=== PATIENT | female | born 1990 | race Caucasian/White ===

== ENCOUNTER → 2019-12-30 | Outpatient (REF) | payer BC | LOC: M LABDRAWC 11:54 | PROVIDERS: ATTEND Internal Medicine Endocrinology, Diabetes & Metabolism | DX: E03.9 Hypothyroidism, unspecified (principal) ==

== ENCOUNTER → 2020-01-12 | Outpatient (REF) | payer BC ==
[2020-01-12 14:07] LABS: BACTERIA, URINE AUTO NEGATIVE (NEGATIVE); RBC, URINE AUTO 1 /HPF (0-3); SQUAMOUS EPITHELIAL CELL UR AU 2 /HPF (0-6); WBC, URINE AUTO 0 /HPF (0-3)
== END ==
LOC: M LAB REF 13:14
PROVIDERS: ATTEND Physician Assistant Medical
DX: N39.0 Urinary tract infection, site not specified (principal)

== ENCOUNTER → 2020-01-13 | Outpatient (CLI) | payer BC ==
--- NOTE | 2020-01-13 10:46 | REPVR ---
PROCEDURE INFORMATION: Exam: US Retroperitoneal; Complete; Kidneys and Bladder Exam date and time: 01/13/2020 10:36 AM Age: 29 years old Clinical indication: Abdominal pain; Flank; Right; Additional info: Urinary tract infection, dorsaliga TECHNIQUE: Imaging protocol: Real-time ultrasound of the retroperitoneum with image documentation. Complete exam focused on the kidneys and bladder. COMPARISON: No relevant prior studies available. FINDINGS: Right kidney: Right kidney measures 9.3 x 5.2 x 3.9 cm and is unremarkable. No evidence of hydronephrosis, calculi or mass. Left kidney: Left kidney measures 9.8 x 4.7 x 4.2 cm and is unremarkable. No evidence of hydronephrosis, calculi or mass. Bladder: Urinary bladder is unremarkable. Bilateral ureteral jets are visualized. IMPRESSION: Unremarkable examination. No acute abnormalities are identified. Electronically signed by: Kartik Mackey On 01/13/2020 10:46:24 AM
== END ==
LOC: M RAD 10:07
PROVIDERS: ATTEND Physician Assistant
DX: N39.0 Urinary tract infection, site not specified (principal); M54.9 Dorsalgia, unspecified